=== PATIENT | female | born 1940 ===

== ENCOUNTER → 2023-04-30 | Outpatient (CLI) | payer MEDICARE, OTHER | LOC: LAB 17:56 → LAB SHORT 17:56 | DX: L60.2 Onychogryphosis (principal); L85.3 Xerosis cutis | CPT/HCPCS: 87220 ==

== ENCOUNTER → 2023-04-30 | Outpatient (CLI) | payer MEDICARE, OTHER | END | disposition home or self-care (01) | LOC: LAB 08:06 → LAB SHORT 08:06 | DX: B35.1 Tinea unguium (principal); L60.2 Onychogryphosis | CPT/HCPCS: 88305; 88312 ==

== ENCOUNTER 2024-06-06 13:43 | Inpatient (IN) | payer MEDICARE, OTHER ==
[~2024-06-06] VITALS: Ht 170.2 cm; Wt 76.6 kg
[2024-06-06] VITALS (12 sets, daily range): BP systolic 120–151; BP diastolic 55–77
[2024-06-06 14:43] LABS: Source, Urine Straight Cath
[2024-06-06 14:48] LABS: CORONAVIRUS COVID-19 AG Negative (NEGATIVE); INFLUENZA A AG Negative (NEGATIVE); INFLUENZA B AG Negative (NEGATIVE)
[2024-06-06 14:49] LABS: Appearance, Urine Hazy (Clear); Bilirubin, Urine Neg (Neg); Blood, Urine 2+ (Neg); Glucose Qualitative, Urine 4+ (Neg); Ketones, Urine 2+ (Neg); Leukocyte Esterase, Urine 1+ (Neg); Nitrite, Urine Neg (Neg); Protein, Urine Neg (Neg); Urobilinogen, Urine NORM (Normal)
[2024-06-06 14:59] LABS: Color, Urine Pale Yellow (P-Yellow)
[2024-06-06 15:01] LABS: BASOPHILS ABSOLUTE AUTO 0.03 K/mm3 (0.00-0.23); BASOPHILS PERCENT AUTO 0 % (0-2); EOSINOPHILS PERCENT AUTO 0 % (0-6); Hemoglobin 18.9 g/dL (11.5-16.0); Hyaline Casts 0-2 /lpf (0-2); IMMATURE GRAN ABSOLUTE AUTO 0.09 K/mm3 (0.00-0.10); IMMATURE GRAN PERCENT AUTO 1 % (0-1); LYMPHOCYTES ABSOLUTE AUTO 1.66 K/mm3 (0.84-5.20); LYMPHOCYTES PERCENT AUTO 11 % (21-46); MONOCYTES ABSOLUTE AUTO 0.62 K/mm3 (0.16-1.47); MONOCYTES PERCENT AUTO 4 % (4-13); Mean Corpuscular HGB 31.9 pg (26.0-34.0); Mean Corpuscular HGB Conc 30.9 g/dL (31.5-36.5); Mean Corpuscular Volume 103 fL (80-100); NEUTROPHILS ABSOLUTE AUTO 12.79 K/mm3 (1.96-9.15); NEUTROPHILS PERCENT AUTO 84 % (41-73); NRBC ABSOLUTE 0.02 K/mm3 (0.00-0.02); NRBC Auto 0.1 /100 WBC (0.0-0.2); Platelet Count 128 K/mm3 (150-400); RDW Coefficient Variation 14.3 % (11.7-14.2); RDW Standard Deviation 55.3 fL (35.1-46.3); Red Blood Cell Count 5.93 M/mm3 (3.80-5.20); Red Blood Cells, Urine 0-2 /hpf (0-2); White Blood Cell Count 15.19 K/mm3 (4.00-11.30); White Blood Cells, Urine 25-50 /hpf (0-5)
[2024-06-06 15:02] LABS: Bacteria Many /hpf; Squamous Epithelial Cells Few /hpf (Few)
[2024-06-06 15:03] LABS: Hematocrit 61.1 % (33.0-51.0)
[2024-06-06 15:19] LABS: Thyroid Stimulating Hormone 0.489 uIU/mL (0.360-4.800)
[2024-06-06 16:03] LABS: Albumin, Blood 3.2 g/dL (3.4-5.0); Albumin/Globulin Ratio 0.7 (0.8-1.8); Bilirubin, Total 0.8 mg/dL (0.1-1.0); Creatinine, Blood 1.37 mg/dL (0.40-1.00); Globulin, Blood 4.8 g/dL (2.2-4.0)
[2024-06-06 16:04] LABS: Potassium, Blood 9.2 mmol/L (3.5-5.5)
[2024-06-06 16:07] LABS: International Normalized Ratio 0.94; Prothrombin Time Results 10.1 Sec (9.7-11.5)
[2024-06-06] MEDS ORDERED: NS 1,000 ML IV SCH ×2 (16:10→16:55)
[2024-06-06] MEDS ORDERED: CefTRIAXone Sodium 1,000 MG in NS 50 ML IV ONE (16:55)
[2024-06-06] MEDS ORDERED: Insulin Human Regular 100 UNIT in NS 100 ML IV SCH (17:25)
[2024-06-06 18:04] LABS: Albumin, Blood 2.9 g/dL (3.4-5.0); Albumin/Globulin Ratio 0.7 (0.8-1.8); Bilirubin, Total 0.6 mg/dL (0.1-1.0); Bun/Creatinine Ratio 61.7 (12.0-20.0); Calcium, Blood 8.7 mg/dL (8.5-10.1); Creatinine, Blood 1.49 mg/dL (0.40-1.00); Globulin, Blood 3.9 g/dL (2.2-4.0); Total Protein, Blood 6.8 g/dL (6.4-8.2)
[2024-06-06 18:05] LABS: PCO2 Venous 30.2 mmHg (38-42); pH Blood Venous 7.24 (7.34-7.37)
[2024-06-06 18:05] LABS: Beta-hydroxybutyrate 67.3 mg/dL (0.2-2.8)
[2024-06-06 18:06] LABS: Base Excess Venous -14.6 mmol/L; Bicarbonate Venous 14.7 mmol/L (24.0-30.0)
[2024-06-06 18:06] LABS: Potassium, Blood 5.9 mmol/L (3.5-5.5)
[2024-06-06 18:42] LABS: Glucose, Blood 779 mg/dL (70-99)
[2024-06-06] MEDS ORDERED: Lactated Ringer's 1,000 ML IV SCH (18:45)
[2024-06-06 19:34] LABS: Bun/Creatinine Ratio 64.6 (12.0-20.0); Calcium, Blood 7.9 mg/dL (8.5-10.1); Creatinine, Blood 1.3 mg/dL (0.40-1.00); Potassium, Blood 4.9 mmol/L (3.5-5.5)
[2024-06-06] MEDS ORDERED: Ondansetron HCl 2 MG / ML 2ML Vial IV PRN (19:45)
[2024-06-06 20:29] LABS: Anti-Xa UFH, PHA Monitoring <0.10 IU/mL
[2024-06-06 20:45] LABS: Glucose, Blood 604 mg/dL (70-99)
[2024-06-06] MEDS ORDERED: Heparin Sodium 5000 Units/ML 1ML MDV IV ONE (21:00)
[2024-06-06] MEDS ORDERED: Heparin Sodium,Porcine/0.5 NS 500 ML IV SCH (21:00)
[2024-06-06] MEDS ORDERED: FLU VACC TS2024-25(6MOS UP)/PF 45 MCG/0.5 ML SYRINGE IM ONE (21:00)
[2024-06-06] MEDS ORDERED: BACL10 PO (22:47)
[2024-06-06] MEDS ORDERED: FENTANYL1 EA12 TOP (22:47)
[2024-06-06] MEDS ORDERED: METF500C (22:48)
[2024-06-06 23:02] LABS: Bun/Creatinine Ratio 65.1 (12.0-20.0); Calcium, Blood 8.8 mg/dL (8.5-10.1); Creatinine, Blood 1.29 mg/dL (0.40-1.00); Potassium, Blood 3.9 mmol/L (3.5-5.5)
[2024-06-06] MEDS ORDERED: Sodium Chloride 0.45% 1,000 ML IV SCH (23:15)
--- NOTE | 2024-06-06 23:17 | NUR ---
CRITICAL LAB VALUES CALLED TO [place], HOSPITALIST. ORDERS GIVEN
[2024-06-07] VITALS (42 sets, daily range): BP systolic 102–132; BP diastolic 43–78
[2024-06-07] MEDS ORDERED: Dextrose 5% 1,000 ML IV SCH (01:20)
--- NOTE | 2024-06-07 02:16 | NUR ---
FENTANYL PATCH WAS PRESENT ON PT RIGHT UPPER CHEST UPON ADMISSION FROM ER. PATCH WAS REMOVED AND DISPOSED OF PROPERLY W/S.FIOR PACE WITNESS
[2024-06-07 02:22] LABS: BASOPHILS ABSOLUTE AUTO 0.03 K/mm3 (0.00-0.23); BASOPHILS PERCENT AUTO 0 % (0-2); EOSINOPHILS ABSOLUTE AUTO 0.01 K/mm3 (0.00-0.68); EOSINOPHILS PERCENT AUTO 0 % (0-6); Hematocrit 48.8 % (33.0-51.0); Hemoglobin 15.2 g/dL (11.5-16.0); IMMATURE GRAN ABSOLUTE AUTO 0.07 K/mm3 (0.00-0.10); IMMATURE GRAN PERCENT AUTO 0 % (0-1); LYMPHOCYTES ABSOLUTE AUTO 2.61 K/mm3 (0.84-5.20); LYMPHOCYTES PERCENT AUTO 14 % (21-46); MONOCYTES ABSOLUTE AUTO 1.27 K/mm3 (0.16-1.47); MONOCYTES PERCENT AUTO 7 % (4-13); Mean Corpuscular HGB 31.8 pg (26.0-34.0); Mean Corpuscular HGB Conc 31.1 g/dL (31.5-36.5); Mean Corpuscular Volume 102 fL (80-100); Mean Platelet Volume 12.4 fL (9.1-12.4); NEUTROPHILS ABSOLUTE AUTO 14.74 K/mm3 (1.96-9.15); NEUTROPHILS PERCENT AUTO 79 % (41-73); Platelet Count 131 K/mm3 (150-400); RDW Standard Deviation 53.9 fL (35.1-46.3); Red Blood Cell Count 4.78 M/mm3 (3.80-5.20); White Blood Cell Count 18.73 K/mm3 (4.00-11.30)
[2024-06-07 02:38] LABS: Magnesium, Blood 2.6 mg/dL (1.6-2.4)
[2024-06-07 02:40] LABS: Bun/Creatinine Ratio 60.5 (12.0-20.0); Calcium, Blood 8.5 mg/dL (8.5-10.1); Creatinine, Blood 1.24 mg/dL (0.40-1.00)
--- NOTE | 2024-06-07 03:09 | NUR ---
NOTIFIED DR ACEVES OF CRITICAL LABS. SEE ORDERS. NO CHANGE IN PT CONDITION
[2024-06-07] MEDS ORDERED: Dose Adjust by Pharmacy XX STA ×4 (05:08→23:10)
--- NOTE | 2024-06-07 05:12 | NUR ---
HEPARIN GTT ON HOLD PER PHARMACY ORDER
--- NOTE | 2024-06-07 05:25 | NUR ---
PT HAS BEEN ALERT, NONVERBAL AT BASELINE-SEE PRIMARY ASSESSMENT. SR ON THE TIRE BAGGER. BP WNL. HEPARIN AND INSULIN GTT INFUSING PER ORDER. FLUIDS PER MD ORDER. 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 PT LIVES IN [facility] AND IS BEDBOUND W/HEMIPLEGIA R/T PRIOR CVA. SHE IS INCONTIENT OF BOWEL AND BLADDER. AFEBRILE. DR GUERRERO HAS BEEN NOTIFIED OF ALL CRITICAL LABS. WILL CONTINUE TO MONITOR.
--- NOTE | 2024-06-07 06:13 | NUR ---
HEPARIN GTT RESTARTED AT PRESCRIBED RATE ONE HOUR AFTER PLACED ON HOLD PER PHARMACY ORDER
[2024-06-07 07:33] LABS: Bun/Creatinine Ratio 61.7 (12.0-20.0); Calcium, Blood 8.4 mg/dL (8.5-10.1); Creatinine, Blood 1.15 mg/dL (0.40-1.00); Potassium, Blood 3.6 mmol/L (3.5-5.5)
[2024-06-07] MEDS ORDERED: Insulin Glargine-Yfgn 100 Unit/mL 3 ML SYR SC ONE (08:00)
[2024-06-07] MEDS ORDERED: Potassium Chl 20MEQ/Water100ML 100 ML IV ONE ×2 (08:35→08:50)
[2024-06-07] MEDS ORDERED: Potassium Chloride 20 MEQ in NS 90 ML IV ONE (08:40)
[2024-06-07] MEDS ORDERED: CefTRIAXone Sodium 1,000 MG in NS 100 ML IV SCH (09:00)
[2024-06-07] MEDS ORDERED: Insulin Human Lispro 100 Units/ML 3ML Syringe SC SCH (12:00)
[2024-06-07 12:09] LABS: Potassium, Blood 4.7 mmol/L (3.5-5.5)
--- NOTE | 2024-06-07 12:57 | NUR ---
MET WITH AYAN WHO PREFERS TO GO BY "RADHA" AND IS ALSO LISTED POA FOR FINANCIAL FOR YARED. DISCUSSED MEDICAL HISTORY OF YARED WITH RADHA. RADHA REPORTED YARED HAS GONE ON ONE OTHER HUNGER STRIKE ABOUT A YEAR AGO WHEN PT STOPPED VISITING HER. RADHA STATED SHE STAYED WITH HER MOM AT [facility] WHEN SHE WENT ON THE HUNGER STRIKE AND AFTER ABOUT 3 DAYS SHE BEGAN EATING AGAIN. RADHA DOES NOT WANT TO GIVE UP ON HER MOM SINCE SHE "CAME OUT OF IT" LAST TIME. DISCUSSED POLST ON FILE WITH RADHA THAT STATES PT WISHES TO BE DNR, COMFORT MEASURES ONLY. PER RADHA SHE WAS NOT PART OF THAT DECISION MAKING PROCESS. BROTHER DRE MADE THAT DECISION BUT DRE HAS NOT BEEN INVOLVED IN THE DECISION MAKING PROCESS OF HIS MOMS CARE IN SEVERAL MONTHS. PER RADHA SHE MAKES MEDICAL DECISIONS AND DRE MAKES FINANCIAL DECISIONS BUT DRE HAS NOT BEEN DEALING WITH FINANCIAL PART EITHER NOW. DISCUSSED CONCERNS OF PT IN DKA AND PT REFUSING MEDICATIONS AND TRIAL OF ORAL INTAKE. RADHA REPORTED SHE WAS UNABLE TO VISIT HER MOM FOR THE PAST 30 DAYS AND THAT MAY BE WHY HER MOM STARTED REFUSING TO EAT OR DRINK. PER RADHA, SHE WANTS TO SEE IF HER MOM WILL RESUME EATING NOW THAT SHE CAN VISIT HER AND ENCOURAGE HER TO EAT AND DRINK AND TAKE HER MEDICATIONS. I DID DISCUSS WITH RADHA, GOALS OF CARE IF HIS MOM DOES CONTINUE TO DECLINE TO EAT OR DRINK WHAT HER MOM WOULD WANT TO DO. DISCUSSED POSSIBLE HOSPICE REFERRAL OUT PATIENT IF SHE CONTINUES TO DECLINE. RADHA BECAME TEARFUL WITH DISCUSSION. GAVE EMOTIONAL SUPPORT. LISTENED EMPATHETICALLY. INFORMED RADHA I WILL FOLLOW-UP IF ANYTHING ELSE IS NEEDED. REVIEW OF MARS SENT FROM [facility] COMPLETED. PER [facility] MARS ON FILE, PT HAS NOT BEEN REFUSING HER MEDICATIONS FOR THE PAST 25 DAYS. SHE IS NOT ON METFORMIN PER JUL. CALL PLACED TO [facility] AND SPOKE TO RN CASSIE. REQUESTED HE FAX POA DOCUMENTS AND PAST YEAR OF DOCUMENTED WEIGHTS. MEDICATIONS RECONCILED.
--- NOTE | 2024-06-07 13:09 | NUR ---
Spiritual care visit conducted. Pt is awake but not verbally responsive. Addressed pt prognosis from pt's son. Pt's son appeared downcast but was receptive to discussion. 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 A palliative care visit occured in the midst of this as well as nurses doing blood work. Prayer was offered and the family member was receptive to this and thanked me for praying and visiting. Pt appeared relieved following prayer.
[2024-06-07] MEDS ORDERED: METF500C PO (14:34)
[2024-06-07] MEDS ORDERED: BISA10S PR (14:35)
[2024-06-07] MEDS ORDERED: DULCOLAX400 MG/5 M PO (14:36)
[2024-06-07] MEDS ORDERED: MIRALAX1714 PO (14:38)
[2024-06-07] MEDS ORDERED: SENN187 PO (14:38)
[2024-06-07 14:57] LABS: Potassium, Blood 4.5 mmol/L (3.5-5.5)
[2024-06-07 16:52] LABS: Potassium, Blood 4.5 mmol/L (3.5-5.5)
--- NOTE | 2024-06-07 18:15 | NUR ---
SHIFT SUMMARY PATIENT OPENS EYES SPONTANEOUSLY AND WITH VERBAL STIMULI. +COUGH/GAG REFLEX. UNABLE TO ASSESS SWALLOW PATIENT REFUSED ANY ORAL CARE, FOOD OR FLUIDS PATIENT IS NON VERBAL AT BASELINE BUT CAN NOD HER HEAD YES AND NO APPROPRIATLEY. VSS SINUS RHYTHM, INVERTED T WAVE, HR IN THE 70S. LUNGS ARE CLEAR TO AUSCULATION. SPO2 REMAINS ABOVE 95% ON RA ABDOMEN IS MILDLY DISTENDED A LITTLE WORSE THIS AFTERNOON. SOFT/ NON TENDER UNKNOWN LAST BM, [id number] BOWEL TONES. PATIENT HAS PRIOR R HEMIPLEGIA, CONTRACTURE OF R HAND. BILATERAL FOOT DROP. ABLE TO MOVE RUE AND RLE. BLE DWAYNE, +EDEMATOUS AND TENDER. PULSES MARKED CHECKED WITH DOPPLER. SKIN IS INTACT. SERIAL ELECTROLYTE LABS DONE TODAY, PROVIDER UPDATED APPROPRIATELY WITH CHANGES IN LABS INSULIN GTT STOPPED AT 0817. REMAINS ON D5W, PATIENT REFUSED ANY ORAL INTAKE TODAY. RADHA - DAUGHTER INTO VISIT TODAY. FAMILY MET WITH PALLATIVE CARE TO DISCUSS WISHES. PATIENT INTERMITTENTLY COOPERATIVE WITH ADLS. CHG BATH COMPLETED WITH GOWN CHANGE. USING PUREWICK, REDUCED UOP THIS AFTERNOON. HEPARIN GTT PAUSED X 3 TODAY DUE TO SUPRATHERAPUTIC ANTI XA PREFERS FEMALE TO ASSIST FOR ADLS
[2024-06-07] MEDS ORDERED: FentaNYL Citrate 50 MCG/ML 2 ML Injection IV PRN (19:45)
--- NOTE | 2024-06-07 20:14 | NUR ---
ASSUMPTION OF CARE: ASSUMED CARE OF PT AT 1900. PT OPENS EYES TO VERBAL STIMULI AND SHAKES HEAD YES/NO TO SIMPLE QUESTIONS. NON-VERBAL AT BASELINE. FOLLOWS SIMPLE DIRECTION. CAN SQUEEZE HAND ON THE LEFT SIDE. RIGHT SIDE DEFICITS FROM PRIOR CVA. MOANS OCCASIONALLY. SHAKES HEAD YES TO PAIN, MEDICATED PER EMAR. D5 INFUSING AT 100 ML/HR THROUGH AVILA POWERGLIDE. PIVS INTACT AND SALINE LOCKED. PAPER MILL SUPERVISOR IN PLACE, SR WITH HR 60'S. SBP 100'S. SHAKES HEAD NO TO CP. PT DECLINING TO EAT OR DRINK ANYTHING. REFUSING ORAL CARE, CLENCHES TEETH SHUT. ABDOMEN DISTENDED, APPEARS NON-TENDER. PUREWICK IN PLACE, DRAINING TO SUCTION. NO BM YET. PT PCU STATUS. BED LOW AND LOCKED, CALL LIGHT IN REACH.
[2024-06-07 21:21] LABS: Potassium, Blood 5.6 mmol/L (3.5-5.5)
[2024-06-08] VITALS: BP 133/62
[2024-06-08 04:00] VITALS: BP 123/98
[2024-06-08 05:43] LABS: Hemoglobin 13.7 g/dL (11.5-16.0); Mean Corpuscular HGB 31.6 pg (26.0-34.0); Mean Corpuscular HGB Conc 31.9 g/dL (31.5-36.5); Mean Corpuscular Volume 99 fL (80-100); Mean Platelet Volume 12.7 fL (9.1-12.4); Platelet Count 80 K/mm3 (150-400); RDW Coefficient Variation 14.1 % (11.7-14.2); RDW Standard Deviation 51.8 fL (35.1-46.3); Red Blood Cell Count 4.34 M/mm3 (3.80-5.20); White Blood Cell Count 10.06 K/mm3 (4.00-11.30)
[2024-06-08 05:45] LABS: NRBC ABSOLUTE 0.02 K/mm3 (0.00-0.02); NRBC Auto 0.2 /100 WBC (0.0-0.2)
--- NOTE | 2024-06-08 05:51 | NUR ---
SHIFT SUMMARY: PT PUSHES THIS RN HANDS AWAY WITH ANY TYPE OF CARE. SHAKES HEAD NO AND MOANS OUT. SHAKES HEAD YES TO PAIN, MEDICATED PER EMAR. REMAINS ON RA WITH SPO2 HIGH 90'S. ROASTER HELPER IN PLACE, SR WITH HR 90'S. SBP 120-130'S. HEPARIN GTT AT 9 UNITS/KG/HR. D5W AT 100 ML/HR. POWERGLIDE TO AVILA PATENT, PIVS PATENT. PUREWICK IN PLACE, DRAINING TO SUCTION. ABDOMEN REMAINS DISTENDED. LEGS REMAIN SWOLLEN AND PAINFUL TO MOVE. PT REFUSING DRINKS/FOOD AND ORAL CARE. BED LOW AND LOCKED.
[2024-06-08 06:15] LABS: Albumin, Blood 2.5 g/dL (3.4-5.0); Anion Gap 11 mmol/L (3-11); Blood Urea Nitrogen 43 mg/dL (8-24); Bun/Creatinine Ratio 45.7 (12.0-20.0); CO2, Blood 24 mmol/L (21-32); Chloride, Blood 123 mmol/L (98-108); Creatinine, Blood 0.94 mg/dL (0.40-1.00); Glomerular Filtration Rate 61 (60-); Glucose, Blood 342 mg/dL (70-99); Magnesium, Blood 2.1 mg/dL (1.6-2.4); Potassium, Blood 4.6 mmol/L (3.5-5.5); Sodium, Blood 153 mmol/L (136-145)
[2024-06-08] MEDS ORDERED: Dose Adjust by Pharmacy XX STA ×2 (06:53→08:22)
[2024-06-08] MEDS ORDERED: Sodium Phosphate 20 MM in Dextrose 5% 500 ML IV STA (07:24)
[2024-06-08 08:00] VITALS: BP 109/92
[2024-06-08 08:11] LABS: International Normalized Ratio 0.98; Prothrombin Time Results 10.5 Sec (9.7-11.5)
[2024-06-08 12:00] VITALS: BP 116/52
[2024-06-08] MEDS ORDERED: Sodium Chloride 0.45% 1,000 ML IV SCH (12:00)
--- NOTE | 2024-06-08 12:03 | NUR ---
WHILE PRIMARY NURSE WAS ON BREAK, THIS RN TOOK OVER. PT BLOOD SUGAR 388, THIS RN CALLED AND PROVIDER SAID GIVE 10u OF INSULIN, PROVIDER SAID TO D/Cd THE D5 1/2 NS AND THEN START 1/2 NS.
--- NOTE | 2024-06-08 12:54 | NUR ---
CALL PLACED TO [facility] TO REQUEST POA PAPERWORK FOR PT TO BE FAXED TO [phone]. SPOKE TO MICHAEL AND GAVE HER AN UPDATE. MICHAEL STATED SHE WOULD SEND PAPERWORK. SHE DID REPORT POA IS FOR FINANCIAL ONLY FOR BOTH RADHA AND DRE.
[2024-06-08 15:07] LABS: BASOPHILS ABSOLUTE AUTO 0.01 K/mm3 (0.00-0.23); BASOPHILS PERCENT AUTO 0 % (0-2); EOSINOPHILS PERCENT AUTO 0 % (0-6); Hematocrit 40.8 % (33.0-51.0); Hemoglobin 13.1 g/dL (11.5-16.0); IMMATURE GRAN ABSOLUTE AUTO 0.05 K/mm3 (0.00-0.10); IMMATURE GRAN PERCENT AUTO 1 % (0-1); LYMPHOCYTES ABSOLUTE AUTO 1.05 K/mm3 (0.84-5.20); LYMPHOCYTES PERCENT AUTO 16 % (21-46); MONOCYTES ABSOLUTE AUTO 0.28 K/mm3 (0.16-1.47); MONOCYTES PERCENT AUTO 4 % (4-13); Mean Corpuscular HGB Conc 32.1 g/dL (31.5-36.5); Mean Corpuscular Volume 100 fL (80-100); NEUTROPHILS ABSOLUTE AUTO 5.27 K/mm3 (1.96-9.15); NEUTROPHILS PERCENT AUTO 79 % (41-73); NRBC ABSOLUTE 0.04 K/mm3 (0.00-0.02); NRBC Auto 0.6 /100 WBC (0.0-0.2); Platelet Count 66 K/mm3 (150-400); RDW Coefficient Variation 14.3 % (11.7-14.2); RDW Standard Deviation 52.6 fL (35.1-46.3); White Blood Cell Count 6.66 K/mm3 (4.00-11.30)
[2024-06-08 15:15] LABS: Mean Platelet Volume 13.1 fL (9.1-12.4)
[2024-06-08 16:00] VITALS: BP 97/49
[2024-06-08] MEDS ORDERED: Meropenem 1,000 MG in NS 100 ML IV SCH (18:00)
--- NOTE | 2024-06-08 18:25 | NUR ---
patient nonverbal at baseline, PATIENTS DAUGHTER RADHA CAME AND THE PATIENT HAD 2 BITES OF TOMATO SOUP AND STILL REFUSED WATER OR ANYTHING ELSE TO EAT. CHANGED D5 IV TO 1/2 NS, SEE EMAR
[2024-06-08 20:00] VITALS: BP 118/52
[2024-06-09] VITALS (7 sets, daily range): BP systolic 106–155; BP diastolic 46–69
[2024-06-09 04:22] LABS: Hematocrit 39.4 % (33.0-51.0); Hemoglobin 12.7 g/dL (11.5-16.0); Mean Corpuscular HGB 31.4 pg (26.0-34.0); Mean Corpuscular HGB Conc 32.2 g/dL (31.5-36.5); Mean Corpuscular Volume 97 fL (80-100); Mean Platelet Volume 12.2 fL (9.1-12.4); NRBC ABSOLUTE 0.03 K/mm3 (0.00-0.02); NRBC Auto 0.5 /100 WBC (0.0-0.2); Platelet Count 55 K/mm3 (150-400); RDW Standard Deviation 50.7 fL (35.1-46.3); Red Blood Cell Count 4.05 M/mm3 (3.80-5.20); White Blood Cell Count 6.47 K/mm3 (4.00-11.30)
[2024-06-09 04:35] LABS: Magnesium, Blood 2.1 mg/dL (1.6-2.4)
[2024-06-09 04:36] LABS: Anion Gap 10 mmol/L (3-11); Blood Urea Nitrogen 24 mg/dL (8-24); Bun/Creatinine Ratio 27.7 (12.0-20.0); CO2, Blood 25 mmol/L (21-32); Calcium, Blood 7.8 mg/dL (8.5-10.1); Chloride, Blood 121 mmol/L (98-108); Creatinine, Blood 0.87 mg/dL (0.40-1.00); Glomerular Filtration Rate 66 (60-); Glucose, Blood 196 mg/dL (70-99); Potassium, Blood 3.8 mmol/L (3.5-5.5); Sodium, Blood 152 mmol/L (136-145)
--- NOTE | 2024-06-09 06:29 | NUR ---
SHIFT SUMMARY: PT HAD NO SIGNIFICANT CHANGES OR EVENTS DURING SHIFT. SHE WAS UNINTERESTED IN PARTICIPATING IN CARE BUT ALLOWED IT. SHE NODS OR SHAKES HEAD TO ANSWER QUESTIONS. SHE HAD SOME ABDOMINAL PAIN IN THE NIGHT, RESOLVED. SHE'S BEEN IN A SINUS RHYTHM ON COLOR LABORATORY TECHNICIAN, MAP >65. ON ROOM AIR PT HAS BEEN ABOVE 95%.
[2024-06-09] MEDS ORDERED: Clarify Drug Order XX ONE (06:40)
--- NOTE | 2024-06-09 07:00 | NUR ---
ASSUMPTION OF CARE PT RECEIVING HEPARIN 6UNITS/KG/HR AND 1/2NS 50ML/HR. PT GRIMACES AND TENSES WITH CARE BUT DOES NOT PROVIDE VERBAL RESPONSE OR NOD/SHAKE HEAD. SINUS ON MONITOR WITH RATE IN 70S. BP STABLE. PUREWICK IN PLACE. BED IN LOW POSITION.
--- NOTE | 2024-06-09 11:11 | NUR ---
Spoke with pt's daughter Cherelle and son Ayaan by phone. She states the patient is able to answer simple "yes" and "no" questions by shaking her head. Cherelle states pt's food of choice is tomato soup and chocolate. Both Cherelle and Ayaan state they want to focus on comfort and quality of life, and lift restrictions on her diet so she is able to eat foods she enjoys. They v/u and agree to focus on pt's comfort with plan to return her to [facility] with hospice if she qualifies. Will discuss with physician.
[2024-06-09] MEDS ORDERED: Dextrose 5% 1,000 ML IV SCH (13:30)
[2024-06-09] MEDS ORDERED: [UNRECOGNIZED DRUG - OTHER] IV SCH (13:45)
[2024-06-09 14:29] LABS: Albumin, Blood 1.9 g/dL (3.4-5.0); Albumin/Globulin Ratio 0.7 (0.8-1.8); Bilirubin, Direct 0.1 mg/dL (0.0-0.3); Bilirubin, Indirect 0.3 mg/dL (0.1-0.7); Bilirubin, Total 0.4 mg/dL (0.1-1.0); Globulin, Blood 2.9 g/dL (2.2-4.0); Total Protein, Blood 4.8 g/dL (6.4-8.2)
--- NOTE | 2024-06-09 14:47 | NUR ---
Family would like to move patient to a long-term care facility in [facility] so she can be closer to family. The patient's sister, along with brother in law and sister in law all live in that area. Pt's 2 adult children are on board with this plan as well. Windows Laptop Technician aware, states the patient will likely have to return to [facility] hospital d/c, then [facility] social services analyst can assist with placement. Referral sent to [facility] for review-Palliative vs Hospice.
[2024-06-09] MEDS ORDERED: Dose Adjust by Pharmacy XX STA ×2 (17:13→19:35)
--- NOTE | 2024-06-09 18:01 | NUR ---
SHIFT SUMMARY PT RECEIVING ARGATROBAN 2MCG/KG/MIN AND D5 100ML/HR. SHE HAS BEEN SLEEPING MOST OF THE DAY BUT HAS ALLOWED REPOSITIONING. PT DID NOT COMMUNICATE WITH STAFF OR FAMILY THIS MORNING/AFTERNOON. THIS EVENING SHE IS MORE ALERT. ANSWERS QUESTIONS BY NODDING/SHAKING HEAD AND OCCASIONALLY MAKES NOISES DURING CARE. CONTINUES TO REFUSE PO INTAKE. SINUS ON MONITOR, BP STABLE THROUGHOUT THE SHIFT. SHE REMAINS ON RA WITH SPO2 >94%. PUREWICK IN PLACE. BED IN LOW POSITION, CALL LIGHT WITHIN REACH.
[2024-06-10] VITALS: BP 122/66
[2024-06-10 04:00] VITALS: BP 122/103
[2024-06-10 04:07] LABS: BASOPHILS ABSOLUTE AUTO 0.03 K/mm3 (0.00-0.23); BASOPHILS PERCENT AUTO 0 % (0-2); EOSINOPHILS ABSOLUTE AUTO 0.06 K/mm3 (0.00-0.68); EOSINOPHILS PERCENT AUTO 1 % (0-6); Hematocrit 39.1 % (33.0-51.0); Hemoglobin 12.9 g/dL (11.5-16.0); IMMATURE GRAN ABSOLUTE AUTO 0.09 K/mm3 (0.00-0.10); IMMATURE GRAN PERCENT AUTO 1 % (0-1); LYMPHOCYTES ABSOLUTE AUTO 1.78 K/mm3 (0.84-5.20); LYMPHOCYTES PERCENT AUTO 23 % (21-46); MONOCYTES ABSOLUTE AUTO 0.51 K/mm3 (0.16-1.47); MONOCYTES PERCENT AUTO 7 % (4-13); Mean Corpuscular Volume 97 fL (80-100); Mean Platelet Volume 12.2 fL (9.1-12.4); NEUTROPHILS ABSOLUTE AUTO 5.42 K/mm3 (1.96-9.15); NEUTROPHILS PERCENT AUTO 69 % (41-73); Platelet Count 51 K/mm3 (150-400); RDW Coefficient Variation 13.7 % (11.7-14.2); Red Blood Cell Count 4.03 M/mm3 (3.80-5.20); White Blood Cell Count 7.89 K/mm3 (4.00-11.30)
[2024-06-10 04:29] LABS: Albumin, Blood 1.9 g/dL (3.4-5.0); Anion Gap 12 mmol/L (3-11); Blood Urea Nitrogen 17 mg/dL (8-24); Bun/Creatinine Ratio 21.4 (12.0-20.0); CO2, Blood 25 mmol/L (21-32); Chloride, Blood 114 mmol/L (98-108); Creatinine, Blood 0.79 mg/dL (0.40-1.00); Glomerular Filtration Rate 75 (60-); Glucose, Blood 264 mg/dL (70-99); Phosphorus, Blood 1.7 mg/dL (2.5-4.9); Potassium, Blood 4.1 mmol/L (3.5-5.5); Sodium, Blood 147 mmol/L (136-145)
--- NOTE | 2024-06-10 05:36 | NUR ---
SHIFT SUMMARY: PT HAS EXHIBITED NO ACUTE CHANGES OVERNIGHT. SHE STILL REFUSES MOST CARE WITH GROANS AND SAYS NO. SHE SHAKES OR NODS HER HEAD TO ANSWER QUESTIONS. SHE DID ALLOW A FEW REPOSITIONS, PUREWICK CHANGE AND SOME LIMITED ORAL CARE. SHE REMAINS ON RA WITH SPO2 >95%. SINUS RHYTHM IN THE 70S. NORMOTENSIVE. NO COMPLAINTS OF PAIN LAST NIGHT.
--- NOTE | 2024-06-10 07:10 | NUR ---
ASSUMPTION OF CARE: ASSUMED CARE OF PATIENT. PATIENT RESTING COMFORTABLY IN BED. VITALS ARE STABLE WITH MAPS >65. HR IN THE 70S. RR IN THE 20S WITH SPO2 >92%. NO SIGNS OR SYMPTOMS OF PAIN OR DISCOMFORT. D5 INFUSING AT 100 MLS/HR AND ARGATROBAN 2 MCG/KG/MIN.
[2024-06-10] MEDS ORDERED: Dextrose 5% 1,000 ML IV ONE (07:35)
[2024-06-10 08:00] VITALS: BP 127/51
[2024-06-10] MEDS ORDERED: Meropenem 1,000 MG in NS 100 ML IV SCH (08:00)
[2024-06-10 11:35] LABS: HEP-IND THROMBOCYTOPEN PF4,IGG 0.072 OD (<=0.399)
[2024-06-10 12:00] VITALS: BP 137/62
[2024-06-10 14:33] VITALS: BP 126/51
--- NOTE | 2024-06-10 14:34 | NUR ---
TRANSFER TO PCU: PATIENT TRANSFERRED TO PCU. PRIOR TO TRANSFER, UPDATED DR. BOLDEN ON THE PATIENT'S STATUS. TODAY THE PATIENT HAS BEEN FOLLOWING DIRECTIONS AND MAKING NEEDS KNOWN WITH POINTING AND SOUNDS. PATIENT HAS BEEN COOPERATIVE WITH CARE. IN ADDITION, NOTIFIED DR. BOLDEN THAT THE PATIENT'S SON, DRE WAS AT BEDSIDE AND THAT SPEECH THERAPY WAS TO ROUND ON THE PATIENT AROUND 15:00 TODAY. BEDSIDE REPORT GIVEN TO STEPHENIE HOUSTON RN. PATIENT TRANSFERRED WITH BELONGINGS. FAMILY AT BEDSIDE DURING TRANSFER.
--- NOTE | 2024-06-10 19:32 | NUR ---
SHIFT SUMMARY: PT ARRIVED FROM ICU TO PCU 9 AT APPROX 1433. PT ARRIVES ALERT AND COMMUNICATING WITH NONVERBAL QUES. SONS AT BEDSIDE. IV INFUSION CONTINUES. SPEECH CAME TO BEDSIDE TO PERFORM ASSESSMENT AND PT REFUSED TO PARTICIPATE. PROVIDER NOTIFIED. PT CONTINUES TO REST IN BED AND DENIES ANY NEEDS. NO SIGNIFICANT EVENTS HAVE HAPPENED SINCE ARRIVAL TO ROOM. REPORT TO MILKA RN TO ASSUME CARE OF PT.
[2024-06-11 03:21] LABS: BASOPHILS ABSOLUTE AUTO 0.01 K/mm3 (0.00-0.23); BASOPHILS PERCENT AUTO 0 % (0-2); EOSINOPHILS ABSOLUTE AUTO 0.07 K/mm3 (0.00-0.68); EOSINOPHILS PERCENT AUTO 1 % (0-6); Hematocrit 41.2 % (33.0-51.0); Hemoglobin 13.6 g/dL (11.5-16.0); IMMATURE GRAN ABSOLUTE AUTO 0.07 K/mm3 (0.00-0.10); IMMATURE GRAN PERCENT AUTO 1 % (0-1); LYMPHOCYTES PERCENT AUTO 28 % (21-46); MONOCYTES ABSOLUTE AUTO 0.42 K/mm3 (0.16-1.47); MONOCYTES PERCENT AUTO 7 % (4-13); Mean Corpuscular HGB 31.8 pg (26.0-34.0); Mean Corpuscular Volume 96 fL (80-100); NEUTROPHILS ABSOLUTE AUTO 3.92 K/mm3 (1.96-9.15); NEUTROPHILS PERCENT AUTO 63 % (41-73); Platelet Count 71 K/mm3 (150-400); RDW Coefficient Variation 13.5 % (11.7-14.2); RDW Standard Deviation 48.2 fL (35.1-46.3); Red Blood Cell Count 4.28 M/mm3 (3.80-5.20); White Blood Cell Count 6.19 K/mm3 (4.00-11.30)
[2024-06-11 03:49] LABS: Anion Gap 12 mmol/L (3-11); Blood Urea Nitrogen 12 mg/dL (8-24); Bun/Creatinine Ratio 19.7 (12.0-20.0); CO2, Blood 21 mmol/L (21-32); Calcium, Blood 8.3 mg/dL (8.5-10.1); Chloride, Blood 119 mmol/L (98-108); Creatinine, Blood 0.61 mg/dL (0.40-1.00); Glomerular Filtration Rate 89 (60-); Glucose, Blood 161 mg/dL (70-99); Phosphorus, Blood 1.8 mg/dL (2.5-4.9); Potassium, Blood 4.1 mmol/L (3.5-5.5); Sodium, Blood 148 mmol/L (136-145)
[2024-06-11 04:00] VITALS: BP 137/81
[2024-06-11] MEDS ORDERED: Dose Adjust by Pharmacy XX STA ×3 (04:19→11:33)
--- NOTE | 2024-06-11 05:03 | NUR ---
SHIFT SUMMARY PT HAS REMAINED COMFORTABLE AND STABLE OVERNIGHT. PT FOLLOWS COMMANDS AND WILL NOD APPROPRIATELY TO ANSWER QUESTIONS. PT REMAINS ON ROOM AIR WITH CLEAR BREATH SOUNDS. PT VOIDS WITH PUREWICK AND HAS NOT HAD A BOWEL MOVEMENT OVER NIGHT. WILL CONTINUE TO MONITOR UNTIL REPORT PASSED TO THE DAY TEAM.
[2024-06-11 07:51] VITALS: BP 138/60
[2024-06-11] MEDS ORDERED: Dextrose 5% 1,000 ML IV SCH (08:20)
[2024-06-11] MEDS ORDERED: Apixaban 5 MG Tab PO SCH (12:00)
[2024-06-11 12:06] VITALS: BP 133/75
[2024-06-11] MEDS ORDERED: ELIQUIS5 M2 PO (13:31)
[2024-06-11] MEDS ORDERED: MEROPENEM1 G1 IV (13:31)
--- NOTE | 2024-06-11 15:44 | NUR ---
DISCHARGE SUMMARY PT ALERT, ABLE TO ANSWER YES/NO QUESTIONS AND MAKE NEEDS KNOWN. SP02>90% ON RA. TELEMETRY SHOWS NSR HR 80'S. VSS. PT DENIES PAIN. AGGRASTAT D/C'D, PT STARTED ON PO ELIQUIS, SEE EMAR. IV'S REMOVED. POWERGLIDE REMAINS FOR PT TO RECEIVE ABX AT [facility]. BED BATH GIVEN. TELEMTRY REMOVED. PT DRESSED IN HOME CLOTHES. FAMILY IN ROOM. TRANSPORT ARRIVED W/ [facility]. PT SLID BY 5 STAFF FROM PCU BED TO [facility]. BELONGINGS WITH PT. REPORT CALLED TO FELISHA PACE.
== END 2024-06-11 15:07 | DRG 637 ==
LOC: ER 13:43 → ERHOLD 18:42 → PCU 18:42 → ICUE 18:42 → PCU 06-10 14:19
PROVIDERS: Emergency Medicine; Family Medicine; Internal Medicine; Nurse Practitioner Acute Care; ADMIT Internal Medicine
DX: E11.10 Type 2 diabetes mellitus with ketoacidosis without coma (principal); G92.8 Other toxic encephalopathy; E87.0 Hyperosmolality and hypernatremia; N39.0 Urinary tract infection, site not specified; Z16.12 Extended spectrum beta lactamase (ESBL) resistance; I82.411 Acute embolism and thrombosis of right femoral vein; I82.431 Acute embolism and thrombosis of right popliteal vein; I69.351 Hemiplegia and hemiparesis following cerebral infarction affecting right dominant side; Z66 Do not resuscitate; B96.20 Unspecified Escherichia coli [E. coli] as the cause of diseases classified elsewhere; I82.461 Acute embolism and thrombosis of right calf muscular vein; E86.0 Dehydration; D75.829 Heparin-induced thrombocytopenia, unspecified; T45.515A Adverse effect of anticoagulants, initial encounter; Z88.0 Allergy status to penicillin; Z88.2 Allergy status to sulfonamides; Z88.8 Allergy status to other drugs, medicaments and biological substances; Z91.040 Latex allergy status
CPT/HCPCS: 36415; 51701; 70450; 71045; 80048; 80051; 80053; 80069; 80076; 81001; 82010; 82803; 82947; 83036; 83605; 83735; 83880; 84443; 85025; 85027; 85520; 85610; 85730; 86022; 87077; 87086; 87186; 87428-QW; 92610; 93005; 93010; 93925; 93970; 96361-59; 96374-59; 99285-25; A9270; C1751; J0696; J0883; J1644; J1815; J2185; J3010; J3480; J7030; J7050; J7060; J7070; J7120